=== PATIENT | male | born 1965 | race African-American/Black ===

== ENCOUNTER 2017-03-08 01:23 | Observation (INO) ==
[2017-03-08] MEDS ORDERED: NITROGLYCERIN 2% OINT 1 INCH/GM PACK TOP STA (01:53)
[2017-03-08] MEDS ORDERED: cloNIDine 0.1 MG TABLET PO STA (01:55)
[2017-03-08] MEDS ORDERED: cloNIDine 0.1 MG TABLET ONE (02:08)
[2017-03-08] MEDS ORDERED: NITROGLYCERIN 2% OINT 1 INCH/GM PACK TOP ONE (02:08)
[2017-03-08 02:10] LABS: Basophils # 0.1 10*3/uL (0.0-0.2); Basophils % 1.2 % (0.0-0.8); Eosinophils # 0.3 10*3/uL (0.0-0.87); Eosinophils % 6.1 % (0.00-10.9); Hematocrit 47.5 VOL% (42.0-52.0); Hemoglobin 15.7 GM/DL (14.0-18.0); Immature Granulocytes % 0.2 %; Immature Granulocytes Absolute 0.01 #; Lymphocytes # 1.6 10*3/uL (1.4-4.0); Lymphocytes % 37.1 % (21.2-54.2); Mean Corpuscular HGB Conc 33.1 GM/DL (32-36); Mean Corpuscular Hemoglobin 28 PG (27-34); Mean Corpuscular Volume 83.8 FL (87-102); Mean Platelet Volume 11.6 FL (9.6-12.0); Monocytes # 0.5 10*3/uL (0.11-0.8); Monocytes % 11.2 % (1.7-12.7); Neutrophils # 1.9 10*3/uL (1.4-7.4); Neutrophils % 44.2 % (38.7-73.9); Platelet Count 224 T/CUMM (130-400); Red Blood Count 5.67 MC/CUMM (3.8-5.5); Red Cell Distribution Width 14.8 % (9.3-17.3); White Blood Count 4.3 T/CUMM (4-12)
[2017-03-08 02:16] LABS: Albumin 3.7 G/DL (3.4-5.0); Bilirubin,Total 0.5 MG/DL (0.2-1.0); Calcium 8.9 MG/DL (8.5-10.1); Magnesium 1.7 MG/DL (1.8-2.4); Osmolality,Calculated 278.7 MOS/KG (273-304); Potassium 4.3 MMOL/L (3.5-5.1); Total Protein 7.6 G/DL (6.4-8.3); Troponin I Only 0.016 NG/ML (0.00-0.045)
[2017-03-08 02:19] LABS: PT Patient Result 10.5 SECS
[2017-03-08] MEDS ORDERED: FUROSEMIDE 40 MG/4 ML VIAL IV STA (03:30)
[2017-03-08] MEDS ORDERED: FUROSEMIDE 40 MG/4 ML VIAL ONE (03:43)
[2017-03-08] MEDS ORDERED: AZITHROMYCIN INJ 500 MG in SODIUM CHLORIDE 0.9% 250 ML IV STA (04:47)
[2017-03-08] MEDS ORDERED: cefTRIAXone 1,000 MG in SODIUM CHLORIDE 0.9% 100 ML IV STA (04:47)
[2017-03-08] MEDS ORDERED: hydrALAZINE 20 MG/1 ML VIAL IV STA (04:47)
[2017-03-08] MEDS ORDERED: hydrALAZINE 20 MG/1 ML VIAL ONE (05:16)
[2017-03-08] MEDS ORDERED: AZITHROMYCIN 500 MG VIAL IV ONE (05:18)
[2017-03-08] MEDS ORDERED: cefTRIAXone 1,000 MG VIAL ONE (05:18)
[2017-03-08] MEDS ORDERED: GLUCAGON 1 MG VIAL IM PRN (05:28)
[2017-03-08] MEDS ORDERED: DEXTROSE 50% 25 GM/50 ML VIAL IV PRN (05:28)
[2017-03-08] MEDS ORDERED: MAGNESIUM OXIDE 400 MG TABLET PO ONE (06:02)
[2017-03-08] MEDS ORDERED: ALBUTEROL/IPRATROPIUM 3 ML NEB RESP TX PRN (06:11)
[2017-03-08] MEDS: ONDANSETRON 4 MG/2 ML VIAL IV PRN ×3 (06:20→17:30)
[2017-03-08] MEDS: amLODIPine 10 MG TABLET PO SCH (08:55)
[2017-03-08] MEDS: ACETAMINOPHEN 325 MG TABLET PO PRN ×2 (08:55→20:57)
[2017-03-08] MEDS: VALSARTAN 160 MG TABLET PO SCH (08:57)
[2017-03-08] MEDS: metFORMIN 500 MG TABLET PO SCH (08:57)
[2017-03-08] MEDS: CARVEDILOL 6.25 MG TABLET PO SCH ×2 (08:59→17:30)
[2017-03-08] MEDS: GLIMEPIRIDE 4 MG TABLET PO SCH ×2 (08:59→20:57)
[2017-03-08] MEDS: ASPIRIN EC 81 MG TABLET PO SCH (08:59)
[2017-03-08] MEDS: PANTOPRAZOLE 40 MG TABLET PO SCH (08:59)
[2017-03-08] MEDS ORDERED: VALSARTAN 160 MG TABLET PO SCH (09:00)
[2017-03-08] MEDS ORDERED: amLODIPine 10 MG TABLET PO SCH (09:00)
[2017-03-08] MEDS: FUROSEMIDE 20 MG/2 ML VIAL IV SCH ×2 (09:01→17:24)
[2017-03-08] MEDS: ENOXAPARIN 40 MG/0.4 ML SYRINGE SUBCUT SCH (09:05)
[2017-03-08] MEDS: INSULIN LISPRO 100 UNIT/ML SUBCUT SCH ×4 (09:59→20:59)
[2017-03-08] MEDS: oxyCODONE/ACETAMINOPHEN 5-325 MG TABLET PO PRN ×2 (12:12→17:29)
[2017-03-08] MEDS: ATORVASTATIN 20 MG TABLET PO SCH (20:57)
[2017-03-08] MEDS: hydrALAZINE 20 MG/1 ML VIAL IV PRN (22:07)
[2017-03-09] MEDS: hydrALAZINE 20 MG/1 ML VIAL IV PRN (05:13)
[2017-03-09] MEDS: cefTRIAXone 1,000 MG in SYRINGE 1 EACH IV SCH (05:16)
[2017-03-09] MEDS: ONDANSETRON 4 MG/2 ML VIAL IV PRN ×2 (05:21→09:35)
[2017-03-09] MEDS: oxyCODONE/ACETAMINOPHEN 5-325 MG TABLET PO PRN (05:22)
[2017-03-09 05:24] LABS: Basophils % 0.8 % (0.0-0.8); Eosinophils # 0.2 10*3/uL (0.0-0.87); Eosinophils % 3.4 % (0.00-10.9); Hematocrit 46.2 VOL% (42.0-52.0); Hemoglobin 15.8 GM/DL (14.0-18.0); Immature Granulocytes % 0.2 %; Immature Granulocytes Absolute 0.01 #; Lymphocytes % 38.3 % (21.2-54.2); Mean Corpuscular HGB Conc 34.2 GM/DL (32-36); Mean Corpuscular Hemoglobin 28 PG (27-34); Mean Corpuscular Volume 81.1 FL (87-102); Mean Platelet Volume 11.3 FL (9.6-12.0); Monocytes # 0.6 10*3/uL (0.11-0.8); Monocytes % 11.7 % (1.7-12.7); Neutrophils # 2.4 10*3/uL (1.4-7.4); Neutrophils % 45.6 % (38.7-73.9); Platelet Count 222 T/CUMM (130-400); Red Cell Distribution Width 14.7 % (9.3-17.3); White Blood Count 5.3 T/CUMM (4-12)
[2017-03-09] MEDS: AZITHROMYCIN INJ 500 MG in SODIUM CHLORIDE 0.9% 250 ML IV SCH (05:25)
[2017-03-09 06:09] LABS: Calcium 9.2 MG/DL (8.5-10.1); Magnesium 1.9 MG/DL (1.8-2.4); Osmolality,Calculated 275.8 MOS/KG (273-304); Potassium 3.9 MMOL/L (3.5-5.1); Thyroid Stimulating Hormone 0.591 uIU/ml (0.358-3.74)
[2017-03-09] MEDS: FUROSEMIDE 20 MG/2 ML VIAL IV SCH (09:38)
[2017-03-09] MEDS: ENOXAPARIN 40 MG/0.4 ML SYRINGE SUBCUT SCH (09:42)
[2017-03-09] MEDS: INSULIN LISPRO 100 UNIT/ML SUBCUT SCH ×4 (09:42→20:51)
[2017-03-09] MEDS: VALSARTAN 160 MG TABLET PO SCH (09:44)
[2017-03-09] MEDS: amLODIPine 10 MG TABLET PO SCH (09:44)
[2017-03-09] MEDS: PANTOPRAZOLE 40 MG TABLET PO SCH (09:45)
[2017-03-09] MEDS: metFORMIN 500 MG TABLET PO SCH (09:45)
[2017-03-09] MEDS: CARVEDILOL 6.25 MG TABLET PO SCH (09:45)
[2017-03-09] MEDS: ASPIRIN EC 81 MG TABLET PO SCH (09:46)
[2017-03-09] MEDS: GLIMEPIRIDE 4 MG TABLET PO SCH ×2 (09:46→20:51)
[2017-03-09] MEDS: ACETAMINOPHEN 325 MG TABLET PO PRN (12:12)
[2017-03-09 16:24] LABS: Troponin I Only < 0.015 NG/ML (0.00-0.045)
[2017-03-09] MEDS: ATORVASTATIN 20 MG TABLET PO SCH (20:51)
[2017-03-09] MEDS: CARVEDILOL 12.5 MG TABLET PO SCH (20:51)
[2017-03-10] MEDS: cefTRIAXone 1,000 MG in SYRINGE 1 EACH IV SCH (05:59)
[2017-03-10 06:00] LABS: Calcium 8.4 MG/DL (8.5-10.1); Magnesium 1.9 MG/DL (1.8-2.4); Osmolality,Calculated 280.5 MOS/KG (273-304); Potassium 3.9 MMOL/L (3.5-5.1)
[2017-03-10] MEDS: AZITHROMYCIN INJ 500 MG in SODIUM CHLORIDE 0.9% 250 ML IV SCH (06:01)
[2017-03-10] MEDS: INSULIN LISPRO 100 UNIT/ML SUBCUT SCH ×2 (07:30→12:09)
[2017-03-10] MEDS ORDERED: LISINOPRIL 20 MG TABLET PO SCH (09:00)
[2017-03-10] MEDS ORDERED: FUROSEMIDE 40 MG TABLET PO SCH (09:00)
[2017-03-10] MEDS: CARVEDILOL 12.5 MG TABLET PO SCH (09:51)
[2017-03-10] MEDS: GLIMEPIRIDE 4 MG TABLET PO SCH (09:51)
[2017-03-10] MEDS: ASPIRIN EC 81 MG TABLET PO SCH (09:52)
[2017-03-10] MEDS: metFORMIN 500 MG TABLET PO SCH (09:52)
[2017-03-10] MEDS: ENOXAPARIN 40 MG/0.4 ML SYRINGE SUBCUT SCH (09:53)
[2017-03-10] MEDS: PANTOPRAZOLE 40 MG TABLET PO SCH (09:53)
[2017-03-10 11:16] VITALS: BP 145/103
== END 2017-03-10 13:00 | disposition home or self-care (01) ==
LOC: N.EDINP 01:23 → N.ED 01:23 → N.3E 05:34
PROVIDERS: ADMIT Hospitalist; ATTEND Hospitalist